=== PATIENT | female | born 1980 | race African-American/Black ===

== ENCOUNTER 2019-12-29 21:17 | Inpatient (IN) | payer MEDICAID ==
[~2019-12-29] VITALS: Ht 160 cm; Wt 69.9 kg
[2019-12-29] MEDS ORDERED: IPRATROPIUM BROMIDE (0.02%) 0.5MG/2.5ML NEB HHN STA (21:32)
[2019-12-29] MEDS ORDERED: SODIUM CHLORIDE 0.9% 1,000 ML IV ONE (21:32)
[2019-12-29] MEDS ORDERED: METHYLPREDNISOLONE SOD SUCC 125 MG/2 ML VIAL IV STA (21:32)
[2019-12-29] MEDS ORDERED: EPINEPHRINE 1:1000 1 MG/ML AMP IM ONE (21:45)
[2019-12-29] MEDS ORDERED: MAGNESIUM 2 G PREMIX 50 ML IV ONE (21:45)
[2019-12-29] MEDS: ALBUTEROL (0.083%) 2.5MG/3ML NEB HHN SCH ×3 (21:59→23:27)
[2019-12-29 22:41] LABS: EOSINOPHILS % 14.5 % (0.0-5.0); HEMOGLOBIN. 14.2 g/dL (12.0-16.0); LYMPHOCYTES % 55.1 % (20.0-50.0); MEAN CORPUSCULAR HEMOGLOBIN 30.9 pg (28.0-32.0); MEAN CORPUSCULAR VOLUME 95.6 fL (81.0-99.0); MONOCYTES % 7.7 % (2.0-8.0); NEUTROPHILS % 21.7 % (40.0-76.0); PLATELET 442 x1000/uL (130-400); RED CELL DISTRIBUTION WIDTH 14.3 % (11.6-14.6)
[2019-12-29 22:51] LABS: CHLORIDE 109 mEq/L (98-107)
[2019-12-29 22:53] LABS: INR 0.9; PROTHROMBIN TIME 10.2 sec (9.6-11.0)
[2019-12-29 23:00] LABS: ETHANOL BLOOD < 10 mg/dL
[2019-12-29 23:08] LABS: HCG SCREEN NEGATIVE
[2019-12-29 23:26] LABS: METHADONE URINE SCREEN NEGATIVE (NEGATIVE)
[2019-12-29 23:27] LABS: *AMPHETAMINES SCREEN URINE NEGATIVE (NEGATIVE); *BENZODIAZEPINES SCREEN URINE NEGATIVE (NEGATIVE); OPIATES URINE SCREEN NEGATIVE (NEGATIVE); PHENCYCLIDINE URINE SCREEN NEGATIVE (NEGATIVE)
[2019-12-29 23:28] LABS: *BARBITURATES SCREEN URINE NEGATIVE (NEGATIVE)
[2019-12-29 23:48] LABS: BG BASE EXCESS -3.8 mmol/L (-2.0-2.0); BG BILEVEL POS AIRWAY PRESSURE 18/5; BG CARBOXYHEMOGLOBIN 0.3 % (0.5-1.5); BG DEOXYHEMOGLOBIN 0.4 % (0.0-5.0); BG FRACTION INSPIRED OXYGEN 100; BG HCO3 ACT 22.1 mmol/L (22.0-26.0); BG METHEMOGLOBIN 0.4 % (0.0-1.5); BG OXYGEN SATURATION 99.6 % (92.0-98.5); BG OXYHEMOGLOBIN 98.9 % (94.0-97.0); BG PCO2 43.5 mmHg (35.0-45.0); BG PH 7.324 (7.350-7.450); BG PO2 540.2 mmHg (75.0-100.0); BG SAMPLE SITE RIGHT RADIAL; BG TOTAL HEMOGLOBIN 12.7 g/dL (12.0-18.0); BG VENT MODE MASK - BIPAP; BG VENT RATE 20 set
[2019-12-30 00:06] LABS: *COCAINE SCREEN URINE PRESUMTIVE POSITIVE (NEGATIVE); CANNABINOID URINE SCREEN PRESUMTIVE POSITIVE (NEGATIVE)
[2019-12-30] MEDS ORDERED: ACETAMINOPHEN 650MG/20.3ML UDC GT PRN (00:15)
[2019-12-30] MEDS ORDERED: ONDANSETRON HCL 4MG/2ML INJ IV PRN (00:15)
[2019-12-30] MEDS ORDERED: ENOXAPARIN 40MG/0.4ML SYR SUBCUT SCH (00:15)
[2019-12-30] MEDS ORDERED: LORAZEPAM 2MG/ML CPJ IV PRN (00:15)
[2019-12-30] MEDS ORDERED: CLONIDINE 0.1MG TABLET PO PRN (00:15)
[2019-12-30] MEDS ORDERED: MORPHINE SULFATE 2 MG/ML CPJ (NOT FOR IM USE) IV PRN (00:15)
[2019-12-30] MEDS ORDERED: AZITHROMYCIN 500 MG in DEXT 5% WATER 250 ML IV SCH (01:00)
[2019-12-30] MEDS ORDERED: CEFTRIAXONE 1 G PREMIX 50 ML IV SCH (02:00)
[2019-12-30] MEDS: METHYLPREDNISOLONE SOD SUCC 125 MG/2 ML VIAL IV SCH ×3 (05:00→18:02)
[2019-12-30] MEDS: ENOXAPARIN 40MG/0.4ML SYR SUBCUT SCH (09:00)
[2019-12-30 09:28] VITALS: BP 119/57
[2019-12-30 10:06] VITALS: BP 120/75
[2019-12-30 11:53] VITALS: BP 143/89
[2019-12-30 16:00] VITALS: BP 114/81
[2019-12-30] MEDS: HYDROCODONE/ACETAMINOPHEN 5/325MG TABLET PO PRN ×2 (16:16→20:52)
[2019-12-30] MEDS: IPRATROPIUM/ALBUTEROL 0.5-3(2.5)MG/3ML NEB NEB PRN (16:25)
[2019-12-30 20:00] VITALS: BP 127/90
[2019-12-31] VITALS: BP 112/68
[2019-12-31] MEDS: METHYLPREDNISOLONE SOD SUCC 125 MG/2 ML VIAL IV SCH ×3 (00:57→11:03)
[2019-12-31 04:00] VITALS: BP 121/44
[2019-12-31 07:00] LABS: HEMATOCRIT. 38.7 % (36.0-48.0); HEMOGLOBIN. 13.2 g/dL (12.0-16.0); MEAN CORPUSCULAR HEMOGLOBIN 31.1 pg (28.0-32.0); MEAN CORPUSCULAR VOLUME 91.4 fL (81.0-99.0); MEAN PLATELET VOLUME 8.4 fl (7.4-10.4); PLATELET 383 x1000/uL (130-400); RED BLOOD CELL COUNT 4.24 mill/uL (4.2-5.4); RED CELL DISTRIBUTION WIDTH 13.8 % (11.6-14.6)
[2019-12-31 07:26] LABS: CHLORIDE 107 mEq/L (98-107)
[2019-12-31 07:35] LABS: PHOSPHORUS 2.9 mg/dL (2.5-4.9)
[2019-12-31 08:00] VITALS: BP 120/65
[2019-12-31] MEDS: ENOXAPARIN 40MG/0.4ML SYR SUBCUT SCH (08:47)
[2019-12-31] MEDS: IPRATROPIUM/ALBUTEROL 0.5-3(2.5)MG/3ML NEB NEB PRN ×2 (09:25→13:54)
[2019-12-31 11:41] VITALS: BP 99/53
[2019-12-31 11:53] LABS: PLATELET ESTIMATE NORMAL
[2019-12-31] MEDS ORDERED: MED4 MT (13:34)
[2019-12-31] MEDS ORDERED: ALBU18HF2 IH (13:34)
[2019-12-31] MEDS ORDERED: FLUT1DIS3 INH (13:34)
[2019-12-31 16:00] VITALS: BP 134/82
[2019-12-31 16:19] VITALS: BP 110/65
== END 2019-12-31 17:20 | disposition home or self-care (01) | DRG 816 ==
LOC: ER 21:17 → UNDOADMIN 22:54 → EDBD 22:54 → MICUSO 22:54 → EDBEDREQTM 23:12 → EDBEDREQSVC 23:12 → EDBEDREQ 23:12 → 5EST 12-30 10:37
PROVIDERS: ADMIT Internal Medicine Nephrology; ATTEND Internal Medicine Nephrology
PROC: 5A09357 Assistance with Respiratory Ventilation, Less than 24 Consecutive Hours, Continuous Positive Airway Pressure (ICD-10-PCS; principal; 2019-12-29)
DX: T59.891A Toxic effect of other specified gases, fumes and vapors, accidental (unintentional), initial encounter (principal); J96.00 Acute respiratory failure, unspecified whether with hypoxia or hypercapnia; J45.902 Unspecified asthma with status asthmaticus; E87.8 Other disorders of electrolyte and fluid balance, not elsewhere classified; J68.0 Bronchitis and pneumonitis due to chemicals, gases, fumes and vapors; F12.90 Cannabis use, unspecified, uncomplicated; F14.90 Cocaine use, unspecified, uncomplicated; F17.210 Nicotine dependence, cigarettes, uncomplicated; D72.829 Elevated white blood cell count, unspecified; Y92.89 Other specified places as the place of occurrence of the external cause
CPT/HCPCS: 36415; 36600; 71045; 80048; 80053; 80305; 80320; 82375; 82805; 83036; 83735; 83880; 84100; 84145; 84484; 84703; 85025; 93005; 94660; 96365; 99291; J0456; J0696; J1650; J2270; J2930; J3475; J3490; J7030; J7060; G0480

== ENCOUNTER 2020-01-28 10:18 | Emergency (ER) | payer MEDICAID ==
[~2020-01-28] VITALS: Ht 152.4 cm; Wt 60.0 kg
[~2020-01-28 10:18] MED LIST: ALBU18HF2 IH; FLUT1DIS3 INH; MED4 MT
[2020-01-28] MEDS ORDERED: IBUPROFEN 600MG TABLET PO STA (11:07)
[2020-01-28 11:10] LABS: CLARITY URINE CLEAR (CLEAR); COLOR URINE YELLOW (YELLOW); KETONES URINE NEGATIVE (NEGATIVE); LEUKOCYTE ESTERASE URINE NEGATIVE (NEGATIVE); NITRITE URINE NEGATIVE (NEGATIVE); OCCULT BLOOD URINE NEGATIVE (NEGATIVE); PROTEIN URINE NEGATIVE (NEGATIVE); SPECIFIC GRAVITY URINE 1.022 (1.005-1.030); UROBILINOGEN URINE 0.2 E.U./dL (0.2-1.0)
[2020-01-28 11:13] VITALS: BP 92/48
== END 2020-01-28 12:26 | disposition home or self-care (01) ==
LOC: ER 10:18
DX: M54.6 Pain in thoracic spine (principal); J45.909 Unspecified asthma, uncomplicated
CPT/HCPCS: 71045; 81003; 81025; 99284